=== PATIENT | male | born 2000 | race Caucasian/White ===

== ENCOUNTER 2020-05-14 21:47 | Emergency (ER) | payer OTHER ==
--- OUTSIDE RECORDS SUMMARY | 2020-05-14 21:50 | XMS REPORT | Continuity of Care Document ---
:2000 Author Organization [facility] t Address [address] [place] [address] Care Team Providers Name Role Phone Pereira EDUCATION OFFICER Attending Clinician Problems This patient has no known problems. Allergies, Adverse Reactions, Alerts This patient has no known allergies or adverse reactions. Medications This patient has no known medications. Procedures This patient has no known procedures. Encounters Start End Encounter Admission Attending Care Care Encounter Source Date/Time Date/Time Type Type Clinicians Facility Department ID 2019-10-06 2019-10-06 Telephone [facility] [id number] 00:00:00 00:00:00 Callum Andrew [id number] [facility] [id number] [facility] [id number] 225 Results This patient has no known results.
--- NOTE | 2020-05-14 23:00 | EDPHYS ---
Physician Documentation [facility] Name: Javier Marina Age: 19 yrs Sex: Male : 2000 Arrival Date: 05/14/2020 Time: 21:52 Bed 16 Private MD: ED Physician Yohannes Lenz HPI: 05/14 22:58 This 19 yrs old Male presents to ER via Ambulatory with complaints of Ankle kb Swelling, Ankle Injury. 22:58 The patient presents with an injury, pain, swelling, tenderness. The complaints affect kb the left ankle. Onset: The symptoms/episode began/occurred just prior to arrival. Context: The problem was sustained at a sports field or court, resulted from twisted while playing basketball, The patient can partially bear weight on the affected extremity. The patient is not able to ambulate. Associated signs and symptoms: Pertinent positives: swelling, Pertinent negatives: calf tenderness, fever, nausea, numbness, rash, tingling, vomiting, warmth, weakness. Modifying factors: The symptoms are alleviated by nothing, the symptoms are aggravated by weight bearing. Severity of symptoms: At their worst the symptoms were moderate, in the emergency department the symptoms are unchanged. The patient has not experienced similar symptoms in the past. The patient has not recently seen a physician. Historical: - Allergies: 22:02 Amoxicillin; ll1 - PMHx: 22:02 None; ll1 - PSHx: 22:02 osteocondroma removed R femur; ll1 - Immunization history:: Flu vaccine is up to date. - Social history:: Smoking status: Patient denies any tobacco usage or history of. ROS: 22:56 Constitutional: Negative for fever, chills, and weight loss, Skin: Negative for injury, kb rash, and discoloration, Neuro: Negative for headache, weakness, numbness, tingling, and seizure. 22:56 MS/extremity: Positive for injury or acute deformity, pain, swelling, tenderness, of the left lateral ankle. Exam: 22:56 Constitutional: This is a well developed, well nourished patient who is awake, alert, kb and in no acute distress. Head/Face: Normocephalic, atraumatic. Skin: Warm, dry with normal turgor. Normal color. Neuro: Awake and alert, GCS 15, oriented to person, place, time, and situation. Moves all extremities. Normal gait. 22:56 Musculoskeletal/extremity: Extremities: grossly normal except: noted in the left lateral ankle: pain, swelling, tenderness, ROM: limited active range of motion due to pain, in the left lateral ankle, Circulation is intact in all extremities. Sensation intact. Weight bearing: is unable to bear weight. Vital Signs: 21:59 BP 132 / 89; Pulse 78; Resp 16; Temp 98.3; Pulse Ox 98% ; Weight 83.91 kg; Height 6 ft. ll1 7 in. (200.66 cm); Pain 6/10; 22:27 BP 112 / 85; Pulse 70; Resp 14; Pulse Ox 98% on R/A; vg1 23:11 BP 104 / 75; Pulse 65; Resp 16; Pulse Ox 100% ; vg1 21:59 Body Mass Index 20.84 (83.91 kg, 200.66 cm) ll1 MDM: 22:03 Patient medically screened. kb 22:56 Data reviewed: vital signs, nurses notes. Data interpreted: Pulse oximetry: on room air kb is 98 %. Interpretation: normal. Counseling: I had a detailed discussion with the patient and/or guardian regarding: the historical points, exam findings, and any diagnostic results supporting the discharge/admit diagnosis, radiology results, the need for outpatient follow up, a orthopedic surgeon, to return to the emergency department if symptoms worsen or persist or if there are any questions or concerns that arise at home. 05/14 22:14 Order name: Ankle Left 3 View XRAY vg1 05/14 22:59 Order name: Aircast Ankle Splint; Complete Time: 23:15 kb 05/14 22:59 Order name: Crutches; Complete Time: 23:15 kb Administered Medications: No medications were administered Disposition: 05/15 06:22 Co-signature as Attending Physician, Yohannes Lenz MD. [email or web address] Disposition: 05/14/20 22:59 Discharged to Home. Impression: Sprain of ankle. - Condition is Stable. - Discharge Instructions: Ankle Sprain, [id number]. - Prescriptions for Ibuprofen 800 mg Oral Tablet - take 1 tablet by ORAL route every 8 hours As needed take with food; 30 tablet. - Medication Reconciliation Form, Thank You Letter, Antibiotic Education, Prescription Opioid Use form. - Follow up: Emergency Department; When: As needed; Reason: Worsening of condition. Follow up: Private Physician; When: 2 - 3 days; Reason: Recheck today's complaints, Continuance of care, Re-evaluation by your physician. Signatures: Dispatcher [employer] Ynes Torrez, PATRICK BENITEZ-Sigrid Lancaster, RN RN vg1 Aida Link RN RN ll1 Yohannes Lenz MD MD [email or web address] Corrections: (The following items were deleted from the chart) 05/14 23:14 22:59 05/14/2020 22:59 Discharged to Home. Impression: Sprain of ankle. Condition is vg1 Stable. Forms are Medication Reconciliation Form, Thank You Letter, Antibiotic Education, Prescription Opioid Use. Follow up: Emergency Department; When: As needed; Reason: Worsening of condition. Follow up: Private Physician; When: 2 - 3 days; Reason: Recheck today's complaints, Continuance of care, Re-evaluation by your physician. kb
--- NOTE | 2020-05-14 23:00 | ER ---
Nurse's Notes [facility] Name: Javier Marina Age: 19 yrs Sex: Male : 2000 Arrival Date: 05/14/2020 Time: 21:52 Bed 16 Private MD: Diagnosis: Sprain of ankle Presentation: 05/14 21:59 Chief complaint: Patient states: L ankle pain and swelling 30 min [employer] while playing ll1 basketball today. Coronavirus screen: Client denies travel out of the [place] in the last 14 days. At this time, the client does not indicate any symptoms associated with coronavirus-19. Ebola Screen: Patient denies travel to an Ebola-affected area in the 21 days before illness onset. Initial Sepsis Screen: Does the patient meet any 2 criteria? No. Patient's initial sepsis screen is negative. Does the patient have a suspected source of infection? Yes: Bone or joint infection. Risk Assessment: Do you want to hurt yourself or someone else? Patient reports no desire to harm self or others. Onset of symptoms was May 14, 2020. 21:59 Method Of Arrival: Ambulatory [facility] 21:59 Acuity: LUIS 4 ll1 Historical: - Allergies: 22:02 Amoxicillin; ll1 - PMHx: 22:02 None; ll1 - PSHx: 22:02 osteocondroma removed R femur; ll1 - Immunization history:: Flu vaccine is up to date. - Social history:: Smoking status: Patient denies any tobacco usage or history of. Screenin:28 Abuse screen: Denies threats or abuse. Nutritional screening: No deficits noted. vg1 Tuberculosis screening: No symptoms or risk factors identified. Fall Risk Fall in past 12 months (25 points). Secondary diagnosis (15 points) No IV (0 pts). Ambulatory Aid- None/Bed Rest/Nurse Assist (0 pts). Gait- Normal/Bed Rest/Wheelchair (0 pts) Mental Status- Oriented to own ability (0 pts). Total Goldman Fall Scale indicates Low Risk Score (25-44 pts). Fall prevention measures have been instituted. Side Rails Up X 2 Placed close to Nursing Station. Assessment: 22:14 Reassessment: Received VO from Antonella CAMPOS for Left ankle Xray 3 view. vg1 22:20 General: Appears in no apparent distress. comfortable, Behavior is calm, cooperative. vg1 Pain: Complains of pain in left lateral ankle Pain currently is 6 out of 10 on a pain scale. at worst was 10 out of 10 on a pain scale. Alleviated by rest, Aggravated by weight bearing. Neuro: Level of Consciousness is awake, alert, obeys commands, Oriented to person, place, time, situation. Cardiovascular: Capillary refill < 3 seconds in bilateral toes Patient's skin is warm and dry. Pulses are palpable in right dorsalis pedis artery and left dorsalis pedis artery. Respiratory: Airway is patent Respiratory effort is even, unlabored. GI: No signs and/or symptoms were reported involving the gastrointestinal system. : No signs and/or symptoms were reported regarding the genitourinary system. EENT: No signs and/or symptoms were reported regarding the EENT system. Derm: Skin is intact, is healthy with good turgor. Musculoskeletal: Swelling present in left lateral ankle. 23:11 Reassessment: Patient appears in no apparent distress at this time. No changes from vg1 previously documented assessment. Patient and/or family updated on plan of care and expected duration. Pain level reassessed. Patient is alert, oriented x 3, equal unlabored respirations, skin warm/dry/pink. Vital Signs: 21:59 BP 132 / 89; Pulse 78; Resp 16; Temp 98.3; Pulse Ox 98% ; Weight 83.91 kg; Height 6 ft. ll1 7 in. (200.66 cm); Pain 6/10; 22:27 BP 112 / 85; Pulse 70; Resp 14; Pulse Ox 98% on R/A; vg1 23:11 BP 104 / 75; Pulse 65; Resp 16; Pulse Ox 100% ; vg1 21:59 Body Mass Index 20.84 (83.91 kg, 200.66 cm) ll1 ED Course: 21:52 Patient arrived in ED. cf2 22:01 Triage completed. ll1 22:02 Arm band placed on Patient placed in an exam room, on a stretcher. ll1 22:03 Ynes Nolen FNP-C is [facility]. kb 22:03 Yohannes Lenz MD is Attending Physician. kb 22:13 Sigrid Suarez, RN is Primary Nurse. vg1 22:28 Patient has correct armband on for positive identification. Bed in low position. Call vg1 light in reach. Side rails up X 1. 22:52 Ankle Left 3 View XRAY In Process Unspecified. EDMS 23:14 No provider procedures requiring assistance completed. Patient did not have IV access vg1 during this emergency room visit. Administered Medications: No medications were administered Outcome: 22:59 Discharge ordered by . tess 23:14 Discharged to home ambulatory. vg1 23:14 Condition: stable 23:14 Discharge instructions given to patient, Instructed on discharge instructions, follow up and referral plans. medication usage, Demonstrated understanding of instructions, follow-up care, medications, Prescriptions given X 1. 23:14 Patient left the ED. vg1 Signatures: Dispatcher [employer] EDMS Ynes Nolen, EMMANUEL-C QUILLER HAND-Marilu Martinez cf2 Sigrid Suarez, RN RN vg1 Aida Link RN RN ll1
[2020-05-14 23:29] VITALS: TEMP 98.3
[2020-05-14 23:32] VITALS: BP 104/75; O2SAT 100
--- NOTE | 2020-05-15 08:18 | RAD REPORT ---
EXAM DESCRIPTION: RAD - Ankle Left 3 View - 05/14/2020 10:52 pm CLINICAL HISTORY: SWELLING, twisting injury COMPARISON: No comparisons FINDINGS: No fracture, dislocation or periosteal reaction. No joint effusion seen. No joint space na rrowing. Lateral soft tissue swelling is present. IMPRESSION: Soft tissue swelling with no left ankle fracture.
== END 2020-05-14 23:14 | disposition home or self-care (01) ==
LOC: ER 21:47
DX: S93.402A Sprain of unspecified ligament of left ankle, initial encounter (principal); X50.1XXA Overexertion from prolonged static or awkward postures, initial encounter; Y93.67 Activity, basketball; Y92.310 Basketball court as the place of occurrence of the external cause; Z88.1 Allergy status to other antibiotic agents
CPT/HCPCS: 99283